=== PATIENT | male | born 1955 | race African-American/Black ===

== ENCOUNTER 2016-08-22 09:34 | Emergency (ER) | payer OTHER ==
[2016-08-22 10:16] VITALS: RESP 16; O2SAT 93
[2016-08-22] MEDS ORDERED: ACETAMINOPHEN 325 MG TAB PO ONE ×2 (10:19)
--- NOTE | 2016-08-22 10:21 | UCPHY ---
H & P Time Seen by Provider: 08/22/16 10:00 Patient Type: New HPI/ROS: 60-year-old male presents complaining of fever cough myalgias Past Medical/Surgical History: Patient denies past medical history Social History: Patient is from [facility] No recent travel Smoking Status: Unknown if ever smoked Physical Exam: 60-year-old male alert and oriented, appears ill, low-grade fever Alert and oriented nontoxic appearance, no acute distress afebrile Atraumatic normocephalic Extraocular muscles intact, anicteric Nares mild yellowish discharge Oropharynx mild erythema no tonsillar swelling no exudate no uvular deviation, tolerating own secretions Neck supple no lymphadenopathy Lungs clear to auscultation bilaterally Heart regular rate and rhythm Abdomen normoactive bowel sounds soft nontender Extremities no cyanosis clubbing or edema Skin no rash Constitutional: Initial Vital Signs Temperature (C) 37.6 C 08/22/16 10:12 Heart Rate 86 08/22/16 10:12 Respiratory Rate 16 08/22/16 10:12 Blood Pressure 198/121 H 08/22/16 10:12 O2 Sat (%) 93 08/22/16 10:12 O2 Delivery Mode Room Air Allergies/Adverse Reactions: No Known Allergies Allergy (Unverified 08/22/16 10:22) Home Medications: Medication Instructions Recorded Metoprolol Tartrate [Lopressor 25 25 mg PO BID #30 tab 08/22/16 mg (*)] Oseltamivir Phosphate [Tamiflu 75 75 mg PO BID #10 cap 08/22/16 mg (*)] Medical Decision Making ED Course/Re-evaluation: Patient seen and evaluated for cough, fever, myalgias. Noted to be hypertensive as well EKG normal sinus rhythm with LVH Chest [id number] interstitial markings could since it with a bronchitis or pneumonitis, no focal consolidation CBC within normal limits Troponin negative BNP negative CMP within normal limits Patient given acetaminophen 1 g for fever, given labetalol 10 mg IV push for hypertension Feels markedly improved after these interventions Differential diagnosis considered Influenza, bronchitis, pneumonia, hypertensive urgency, congestive heart failure Impression Influenza like illness Hypertension Plan Tamiflu for influenza like illness Metoprolol 25 mg p.o. twice daily, given 2 week supply until he follows up with [facility] Laboratory Results: Laboratory Results 08/22/16 11:10 08/22/16 11:10 08/22/16 08/22/16 08/22/16 11:10 11:10 11:10 WBC 4.12 10^3/uL 10^3/uL (3.80-9.50) RBC 6.63 10^6/uL H 10^6/uL (4.40-6.38) Hgb 18.8 g/dL H g/dL (13.7-17.5) Hct 54.4 % H % (40.0-51.0) MCV 82.1 fL fL (81.5-99.8) MCH 28.4 pg pg (27.9-34.1) MCHC 34.6 g/dL g/dL (32.4-36.7) RDW 17.4 % H % (11.5-15.2) Plt Count 232 10^3/uL 10^3/uL (150-400) MPV 9.9 fL fL (8.7-11.7) Neut % (Auto) 43.8 % % (39.3-74.2) Lymph % (Auto) 40.3 % % (15.0-45.0) [place] % (Auto) 15.3 % H % (4.5-13.0) Eos % (Auto) 0.2 % L % (0.6-7.6) Baso % (Auto) 0.2 % L % (0.3-1.7) Nucleat RBC Rel Count 0.0 % % (0.0-0.2) Absolute Neuts (auto) 1.80 10^3/uL 10^3/uL (1.70-6.50) Absolute Lymphs (auto) 1.66 10^3/uL 10^3/uL (1.00-3.00) Absolute Monos (auto) 0.63 10^3/uL 10^3/uL (0.30-0.80) Absolute Eos (auto) 0.01 10^3/uL L 10^3/uL (0.03-0.40) Absolute Basos (auto) 0.01 10^3/uL L 10^3/uL (0.02-0.10) Absolute Nucleated RBC 0.00 10^3/uL 10^3/uL (0-0.01) Immature Gran % 0.2 % % (0.0-1.1) Immature Gran # 0.01 10^3/uL 10^3/uL (0.00-0.10) PT 12.1 SEC SEC (12.0-15.0) INR 0.92 (0.83-1.16) APTT 29.7 SEC SEC (23.0-38.0) Sodium 139 mEq/L mEq/L (134-144) Potassium 4.3 mEq/L mEq/L (3.5-5.2) Chloride 99 mEq/L mEq/L (97-110) Carbon Dioxide 23 mEq/l mEq/l (22-31) Anion Gap 17 mEq/L H mEq/L (8-16) BUN 11 mg/dL mg/dL (7-23) Creatinine 0.9 mg/dL mg/dL (0.7-1.3) Estimated GFR > 60 Glucose 116 mg/dL H mg/dL (70-100) Calcium 9.4 mg/dL mg/dL (8.5-10.4) Total Bilirubin 0.8 mg/dL mg/dL (0.1-1.4) AST 42 IU/L IU/L (17-59) ALT 63 IU/L IU/L (21-72) Alkaline Phosphatase 67 IU/L IU/L (38-126) Troponin I < 0.012 ng/mL ng/mL (0-0.034) NT-Pro-B Natriuret Pep 40 pg/mL pg/mL (0-125) Total Protein 8.4 g/dL H g/dL (6.3-8.2) Albumin 4.3 g/dL g/dL (3.5-5.0) Influenza Typ A,B (DFA) 08/22/16 10:25 WBC RBC Hgb Hct MCV MCH MCHC RDW Plt Count MPV Neut % (Auto) Lymph % (Auto) [place] % (Auto) Eos % (Auto) Baso % (Auto) Nucleat RBC Rel Count Absolute Neuts (auto) Absolute Lymphs (auto) Absolute Monos (auto) Absolute Eos (auto) Absolute Basos (auto) Absolute Nucleated RBC Immature Gran % Immature Gran # PT INR APTT Sodium Potassium Chloride Carbon Dioxide Anion Gap BUN Creatinine Estimated GFR Glucose Calcium Total Bilirubin AST ALT Alkaline Phosphatase Troponin I NT-Pro-B Natriuret Pep Total Protein Albumin Influenza Typ A,B (DFA) NEGATIVE FOR FLU (NEGATIVE) Medications Given: Discontinued Medications Acetaminophen (Tylenol) 325 mg PO EDNOW ONE Stop: 08/22/16 10:20 Last Admin: 08/22/16 11:05 Dose: 325 mg Acetaminophen (Tylenol) 650 mg PO EDNOW ONE Stop: 08/22/16 10:20 Last Admin: 08/22/16 11:05 Dose: 650 mg Labetalol HCl (Trandate Injection) 10 mg IVP ONCE ONE Stop: 08/22/16 10:24 Last Admin: 08/22/16 11:15 Dose: 10 mg Labetalol HCl (Trandate Injection) 10 mg IVP ONCE ONE Stop: 08/22/16 12:23 Last Admin: 08/22/16 12:41 Dose: Not Given Departure - Departure Disposition: Home, Routine, Self-Care Clinical Impression: Hypertension, Flu-like symptoms Condition: Good Instructions: Influenza (ED), Hypertension (ED) Referrals: NONE *PRIMARY CARE P,. [Primary Care Provider] - As per Instructions Stand Alone Forms: Work Excuse Prescriptions: Metoprolol Tartrate [Lopressor 25 mg (*)] 25 mg PO BID #30 tab Oseltamivir Phosphate [Tamiflu 75 mg (*)] 75 mg PO BID #10 cap - PQRS PQRS Measurement: na
[2016-08-22] MEDS ORDERED: LABETALOL HCL 5 MG/ML 20 ML MDV IVP ONE ×2 (10:23→12:22)
--- NOTE | 2016-08-22 10:46 | CPEKG ---
Heart Rate: 82 RR Interval: 732 P-R Interval: 172 QRSD Interval: 92 QT Interval: 380 QTC Interval: 444 P Catherine: 59 QRS Catherine: -23 T Wave Catherine: 75 EKG Severity - ABNORMAL ECG - EKG Impression: SINUS RHYTHM EKG Impression: LETA, CONSIDER BIATRIAL ABNORMALITIES EKG Impression: LEFT VENTRICULAR HYPERTROPHY EKG Impression: ABNORMAL T, CONSIDER ISCHEMIA, LATERAL LEADS EKG Impression: ANTERIOR ST ELEVATION, PROBABLY DUE TO LVH Electronically Signed By: Trai Amato 23-Aug-2016 10:27:38
[2016-08-22 11:11] LABS: APTT 29.7 SEC (23.0-38.0); INR 0.92 (0.83-1.16); PROTIME(PATIENT) 12.1 SEC (12.0-15.0)
[2016-08-22 11:21] LABS: % IMMATURE GRANULYOCYTES 0.2 % (0.0-1.1); ABSOLUTE IMMATURE GRANULOCYTES 0.01 10^3/uL (0.00-0.10); ADD DIFF? NO; ADD MORPH? NO; ADD SCAN? NO; ATYPICAL LYMPHOCYTE FLAG 80 (0-99); FRAGMENT RBC FLAG 20 (0-99); HEMATOCRIT 54.4 % (40.0-51.0); HEMOGLOBIN 18.8 g/dL (13.7-17.5); LEFT SHIFT FLG 0 (0-99); LIPEMIA HEMOLYSIS FLAG 90 (0-99); MEAN CELL HEMOGLOBIN 28.4 pg (27.9-34.1); MEAN CELL HEMOGLOBIN CONCENTR. 34.6 g/dL (32.4-36.7); MEAN CELL VOLUME 82.1 fL (81.5-99.8); MEAN PLATELET VOLUME 9.9 fL (8.7-11.7); PLATELET CLUMPS FLAG 0 (0-99); PLATELET COUNT 232 10^3/uL (150-400); RED BLOOD CELL COUNT 6.63 10^6/uL (4.40-6.38); RED CELL DISTRIBUTION WIDTH 17.4 % (11.5-15.2)
[2016-08-22 11:31] LABS: ALANINE AMINOTRANSFERASE 63 IU/L (21-72); ALBUMIN 4.3 g/dL (3.5-5.0); ALKALINE PHOSPHATASE 67 IU/L (38-126); ANION GAP 17 mEq/L (8-16); ASPARTATE AMINOTRANSFERASE 42 IU/L (17-59); BILIRUBIN,TOTAL 0.8 mg/dL (0.1-1.4); CALCIUM 9.4 mg/dL (8.5-10.4); CARBON DIOXIDE 23 mEq/l (22-31); CHLORIDE 99 mEq/L (97-110); CREATININE 0.9 mg/dL (0.7-1.3); GLOMERULAR FILTRATION RATE > 60; GLUCOSE 116 mg/dL (70-100); POTASSIUM 4.3 mEq/L (3.5-5.2); SODIUM 139 mEq/L (134-144); TOTAL PROTEIN 8.4 g/dL (6.3-8.2)
[2016-08-22 11:45] LABS: TROPONIN I < 0.012 ng/mL (0-0.034)
[2016-08-22 12:32] VITALS: BP 162/101; PULSE 72
[2016-08-22 12:44] VITALS: TEMP 98.8
== END 2016-08-22 12:30 | disposition home or self-care (01) ==
LOC: CED 09:34
DX: R50.9 Fever, unspecified (principal); R05 Cough; M79.1 Myalgia; I10 Essential (primary) hypertension
CPT/HCPCS: 71020-PO; 80053-PO; 83880-PO; 84484-PO; 85025-PO; 85610-PO; 85730-PO; 87400-PO; 93010-PO; 96374-PO; 99202-PO; G0463-PO; J3490